=== PATIENT | female | born 1985 | race Caucasian/White ===

== ENCOUNTER 2016-11-18 19:38 | Emergency (ER) | payer OTHER, MEDICARE ==
--- NOTE | ~2016-11-18 | CR20 ---
[facility] A Service of [facility] & [facility] RADIOLOGY TEXT RESULTS PATIENT: PATRIC ALVES LOCATION: [facility] : 87 UNIT #: [id number] AGE: [address]: JAI CARBAJAL APRN SEX: F ORDER DR: [id number] [facility] [address] [place], [place] [address] [id number] E MR#: [id number] Acc #: [id number] NAME: PATRIC ALVES. : 1985 SEX: F STUDY DATE/TIME: 11/18/2016 22:05 UNIT: [facility] ROOM: STUDY DESCRIPTION: CR Ankle Min 3 Views Lt Attending Physician: Jai Carbajal Aprn Ordering Physician: Jai Carbajal Aprn Primary Care Physician: Primary Care Physician No MEDICAL IMAGING REPORT This report is preliminary unless electronic signature is present EXAM Left ankle 3 views HISTORY Fell off curve 11/18/2016 pain, swelling, tingling. FINDINGS AP, lateral, and oblique projections of the ankle show satisfactory integrity of the joint mortise with a smooth articular surface. There is no identifiable fracture, dislocation, or radiopaque foreign body. IMPRESSION Normal left ankle. Dictated by... Lakeisha Montesinos M.D. THIS IS AN ELECTRONICALLY VERIFIED REPORT Lakeisha Montesinos M.D. at 11/19/2016 2:34 PM RELL/isabella TD: 11/19/2016 08:18 JOB #: [id number] MEDICAL IMAGING REPORT Page 1 of 1 COPY
[~2016-11-18 19:38] MED LIST: ALBUTEROL17 GM; ALBUTEROL17 GM PO; ASACOL HD800 MG PO; ASCOL PO; BACTRIM DS TABL1 TA1 PO; BENADRYL PO; BENTYL20 MG; BENTYL20 MG PO; CARAFATE1 GM PO; CIMZIA400 MG/2 M SQ; CLINDAMYCIN HC300 MG PO; DILANTIN PO; FLAGYL PO; KEFLEX500 M1 PO; LEVAQUIN PO; LOMOTIL TABLET1 TAB PO; NORCO 5/325 TAB1 TAB PO; NORCO1 TAB 10/3 PO; PERCOCET7.5 PO; PHENERGAN PO; PHENERGAN25 M1 PO; PHENERGAN25 MG PO; PROTONIX PO; VANCOMYCIN HCL250 MG; ZYRTEC D PO; [UNRECOGNIZED DRUG - OTHER]; [UNRECOGNIZED DRUG - OTHER]
== END 2016-11-18 22:44 | disposition left against medical advice (07) ==
LOC: CFTX 19:38 → CED 19:38 → CFTX 22:05
DX: S93.402A Sprain of unspecified ligament of left ankle, initial encounter (principal); J45.909 Unspecified asthma, uncomplicated; F17.210 Nicotine dependence, cigarettes, uncomplicated; Z88.8 Allergy status to other drugs, medicaments and biological substances; Z88.0 Allergy status to penicillin; Z88.2 Allergy status to sulfonamides; X50.1XXA Overexertion from prolonged static or awkward postures, initial encounter; Y92.410 Unspecified street and highway as the place of occurrence of the external cause
CPT/HCPCS: 73610; 99283